=== PATIENT | female | born 1970 | race Caucasian/White ===

== ENCOUNTER 2017-06-19 18:15 | Emergency (ER) | payer OTHER, BC ==
[~2017-06-19] VITALS: Ht 172.7 cm; Wt 76.0 kg
[~2017-06-19 18:15] MED LIST: FLAG500T PO; LEVO.025 PO; LORT7.5T3 PO
[2017-06-19 18:34] VITALS: BP 172/84; PULSE 79; RESP 16; TEMP 98.6; O2SAT 98
[2017-06-19] MEDS ORDERED: LEVO50TA4 PO (19:07)
[2017-06-19] MEDS ORDERED: DIAZEPAM 5 MG TAB PO ONE (20:00)
[2017-06-19] MEDS ORDERED: KETOROLAC TROMETHAMINE 60 MG/2 ML (IM) VIAL IM ONE (20:00)
[2017-06-19] MEDS ORDERED: ONDANSETRON ODT 4 MG TAB PO ONE (20:00)
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
[2017-06-19] MEDS ORDERED: ROBA750T PO (20:32)
[2017-06-19] MEDS ORDERED: IBUP1TAB7 PO (20:32)
== END 2017-06-19 20:43 | disposition home or self-care (01) ==
LOC: PHED 18:15 → PHEFT 20:43
DX: S16.1XXA Strain of muscle, fascia and tendon at neck level, initial encounter (principal); G44.209 Tension-type headache, unspecified, not intractable; M54.6 Pain in thoracic spine; Z72.0 Tobacco use; V49.49XA Driver injured in collision with other motor vehicles in traffic accident, initial encounter
CPT/HCPCS: 96372; 99284; J1885